=== PATIENT | male | born 1995 | race African-American/Black ===

== ENCOUNTER 2021-04-01 01:12 | Emergency (ER) | payer MEDICAID ==
[~2021-04-01] VITALS: Ht 193 cm; Wt 91.2 kg
[~2021-04-01 01:12] MED LIST: BUPR75TA4; TRAZ1TAB12; [UNRECOGNIZED DRUG - CODE]
[2021-04-01] MEDS ORDERED: LORazepam 2MG/ML-1ML VIAL IM ONE ×2 (09:45→10:45)
[2021-04-01 10:08] LABS: Basophils # (auto) 0.1 10 ^3/uL (0-0.2); Basophils % (auto) 0.8 % (0.0-2.0); Eosinophils # (auto) 0.3 10 ^3/uL (0-0.8); Eosinophils % (auto) 3.7 % (0.0-7.0); Hematocrit 42.3 % (41.0-53.0); Hemoglobin 13.6 g/dL (13.5-17.5); Lymphocytes # (auto) 2.2 10 ^3/uL (0.4-5.4); Lymphocytes % (auto) 27.6 % (10.0-50.0); Mean Corpuscular Hemoglobin 28.1 pg (28.0-32.0); Mean Corpuscular Hgb Conc. 32.2 g/dL (32.0-36.0); Mean Corpuscular Volume 87.3 fL (80.0-100.0); Monocytes # (auto) 0.6 10 ^3/uL (0-1.3); Neutrophils # (auto) 4.7 10 ^3/uL (1.6-8.6); Neutrophils % (auto) 59.9 % (37.0-80.0); Nucleated Red Blood Cells % 0.1 %; Red Blood Cells 4.85 10^6/uL (4.5-5.90); Red Cell Distribution Width 13.2 % (11.8-14.3); White Blood Cell 7.9 10^3/uL (4.4-10.8)
[2021-04-01] MEDS ORDERED: HALOPERIDOL LACTATE 5 MG/ML INJ VIAL ONE (10:39)
[2021-04-01] MEDS ORDERED: LORazepam 2MG/ML-1ML VIAL ONE (10:40)
[2021-04-01] MEDS ORDERED: HALOPERIDOL LACTATE 5 MG/ML INJ VIAL IM ONE (10:45)
[2021-04-01 11:44] LABS: Chloride 107 mmol/L (98-107); Sodium 140 mmol/L (136-145)
[2021-04-01 11:57] LABS: Alanine Aminotransferase 30 U/L (16-61); Albumin 3.3 g/dL (3.4-5.0); Alkaline Phosphatase 77 U/L (45-117); Anion Gap 4 (5-15); Aspartate Aminotransferase 24 U/L (15-37); BUN/Creatinine Ratio 13.9; Bilirubin, Total 0.9 mg/dL (0.2-1.0); Blood Alcohol < 3.0 mg/dL (0-5); Blood Urea Nitrogen 14 mg/dL (7-18); Calcium 8.8 mg/dL (8.5-10.1); Carbon Dioxide 29 mmol/L (21-32); GFR African American 116 mL/min; GFR Non-African American 96 mL/min; Glucose 102 mg/dL (74-106); Magnesium 2.5 mg/dL (1.6-2.6); Total Protein 6.7 g/dL (6.4-8.2)
[2021-04-01 20:30] VITALS: BP 105/53
== END 2021-04-02 08:31 | disposition left against medical advice (07) ==
LOC: ER 01:14
DX: R45.851 Suicidal ideations (principal); J45.909 Unspecified asthma, uncomplicated; Z59.00 Homelessness unspecified; Z79.899 Other long term (current) drug therapy
CPT/HCPCS: 36415; 80053; 80320; 83735; 85025; 96372; 99285; J1630; J2060

== ENCOUNTER 2021-04-03 04:15 | Emergency (ER) | payer MEDICAID ==
[~2021-04-03] VITALS: Ht 190.5 cm; Wt 90.7 kg
[2021-04-03 04:21] VITALS: BP 107/57
[2021-04-03 07:27] LABS: Urine WBC None Seen /hpf (0 - 3)
[2021-04-03 07:28] LABS: Basophils # (auto) 0.1 10 ^3/uL (0-0.2); Basophils % (auto) 0.8 % (0.0-2.0); Eosinophils # (auto) 0.3 10 ^3/uL (0-0.8); Eosinophils % (auto) 3.5 % (0.0-7.0); Hematocrit 42.9 % (41.0-53.0); Lymphocytes # (auto) 2.6 10 ^3/uL (0.4-5.4); Lymphocytes % (auto) 35.2 % (10.0-50.0); Mean Corpuscular Hemoglobin 28.6 pg (28.0-32.0); Mean Corpuscular Hgb Conc. 32.7 g/dL (32.0-36.0); Mean Corpuscular Volume 87.4 fL (80.0-100.0); Monocytes # (auto) 0.6 10 ^3/uL (0-1.3); Monocytes % (auto) 7.6 % (0.0-12.0); Neutrophils % (auto) 52.9 % (37.0-80.0); Nucleated Red Blood Cells % 0.1 %; Red Blood Cells 4.91 10^6/uL (4.5-5.90); Red Cell Distribution Width 13.2 % (11.8-14.3); White Blood Cell 7.5 10^3/uL (4.4-10.8)
[2021-04-03 07:45] LABS: Albumin 3.1 g/dL (3.4-5.0); Anion Gap 6 (5-15); Blood Urea Nitrogen 11 mg/dL (7-18); Calcium 8.7 mg/dL (8.5-10.1); Carbon Dioxide 28 mmol/L (21-32); Chloride 108 mmol/L (98-107); Glucose 89 mg/dL (74-106); Sodium 142 mmol/L (136-145)
[2021-04-03 07:47] LABS: Alanine Aminotransferase 29 U/L (16-61); Aspartate Aminotransferase 23 U/L (15-37); BUN/Creatinine Ratio 11.3; Blood Alcohol < 3.0 mg/dL (0-5); GFR African American 121 mL/min; GFR Non-African American 100 mL/min
[2021-04-03 07:49] LABS: Alkaline Phosphatase 70 U/L (45-117); Bilirubin, Total 0.3 mg/dL (0.2-1.0); Total Protein 6.7 g/dL (6.4-8.2)
[2021-04-03 07:53] LABS: Urine Bacteria NONE SEEN /hpf (None Seen); Urine Blood Negative /uL (Negative)
[2021-04-03 07:58] LABS: Acetaminophen < 2.0 ug/mL (10-30); Salicylate < 1.7 mg/dL (2.8-20.0)
[2021-04-03 08:16] LABS: Amphetamine Screen, Urine NEGATIVE (NEGATIVE); Barbiturate Scree,Urine NEGATIVE (NEGATIVE); Benzodiazephine Screen, Urine NEGATIVE (NEGATIVE)
[2021-04-03 08:31] LABS: Alcohol, Urine < 3.0 mg/dL (0-10); Cannabinoid Screen, Urine POSITIVE (NEGATIVE); Cocaine Screen, Urine NEGATIVE (NEGATIVE); Opiate Scree,Urine NEGATIVE (NEGATIVE); Phencyclidine Screen, Urine NEGATIVE (NEGATIVE)
== END 2021-04-03 08:30 | disposition left against medical advice (07) ==
LOC: EDBD 04:15 → ER 04:15
DX: R45.851 Suicidal ideations (principal); F32.9 Major depressive disorder, single episode, unspecified; J45.909 Unspecified asthma, uncomplicated
CPT/HCPCS: 36415; 80053; 80307; 80320; 80329; 81001; 85025

== ENCOUNTER 2021-04-08 23:58 | Emergency (ER) | payer MEDICAID ==
[~2021-04-08] VITALS: Ht 177.8 cm; Wt 81.6 kg
[2021-04-08 23:58] VITALS: BP 109/65
== END 2021-04-09 02:17 | disposition left against medical advice (07) ==
LOC: ER 23:58 → EDSEX 23:58 → EDBD 23:58 → ER 04-09 02:17
DX: M79.10 Myalgia, unspecified site (principal); R53.1 Weakness; Z53.21 Procedure and treatment not carried out due to patient leaving prior to being seen by health care provider

== ENCOUNTER 2022-03-25 17:53 | Emergency (ER) | payer MEDICAID ==
[~2022-03-25] VITALS: Ht 193 cm; Wt 111.1 kg
[2022-03-25 19:29] LABS: Basophils # (auto) 0 10 ^3/uL (0-0.2); Basophils % (auto) 0.7 % (0.0-2.0); Eosinophils # (auto) 0.2 10 ^3/uL (0-0.8); Eosinophils % (auto) 3.3 % (0.0-7.0); Hematocrit 42.5 % (41.0-53.0); Hemoglobin 13.7 g/dL (13.5-17.5); Lymphocytes % (auto) 29.5 % (10.0-50.0); Mean Corpuscular Hemoglobin 27.7 pg (28.0-32.0); Mean Corpuscular Hgb Conc. 32.3 g/dL (32.0-36.0); Mean Corpuscular Volume 85.8 fL (80.0-100.0); Monocytes # (auto) 0.5 10 ^3/uL (0-1.3); Monocytes % (auto) 7.6 % (0.0-12.0); Neutrophils # (auto) 4.1 10 ^3/uL (1.6-8.6); Neutrophils % (auto) 58.9 % (37.0-80.0); Red Blood Cells 4.96 10^6/uL (4.5-5.90); Red Cell Distribution Width 13.7 % (11.8-14.3); White Blood Cell 6.9 10^3/uL (4.4-10.8)
[2022-03-25 19:53] LABS: Albumin 3.6 g/dL (3.4-5.0); BUN/Creatinine Ratio 13.1; Calcium 8.9 mg/dL (8.5-10.1)
[2022-03-25 19:57] LABS: Bilirubin, Total 0.5 mg/dL (0.2-1.0); Total Protein 6.6 g/dL (6.4-8.2)
[2022-03-25 21:32] VITALS: BP 106/48
== END 2022-03-25 21:37 | disposition home or self-care (01) ==
LOC: ER 17:53
DX: R55 Syncope and collapse (principal); F12.10 Cannabis abuse, uncomplicated; J45.909 Unspecified asthma, uncomplicated
CPT/HCPCS: 36415; 80053; 82962; 85025; 93005

== ENCOUNTER 2022-05-14 16:12 | Emergency (ER) | payer MEDICAID ==
[~2022-05-14] VITALS: Ht 193 cm; Wt 109.0 kg
[2022-05-14] MEDS ORDERED: HYDROcodone-ACET 10/325MG TAB PO ONE (16:30)
[2022-05-14] MEDS ORDERED: KETOROLAC TROMETH 60MG/2ML VIAL IM ONE (16:30)
[2022-05-14] MEDS ORDERED: IBUP800T26 PO (18:31)
[2022-05-14] MEDS ORDERED: HYDR-4902 PO (18:31)
[2022-05-14 20:22] VITALS: BP 106/58
== END 2022-05-14 20:24 | disposition home or self-care (01) ==
LOC: ER 16:12
DX: R68.84 Jaw pain (principal); J45.909 Unspecified asthma, uncomplicated; F32.9 Major depressive disorder, single episode, unspecified
CPT/HCPCS: 70110; 96372; 99283; J1885

== ENCOUNTER 2023-07-05 18:47 | Emergency (ER) | payer MEDICAID, OTHER ==
[~2023-07-05] VITALS: Ht 297.2 cm; Wt 103.5 kg
[~2023-07-05 18:47] MED LIST changes: +HYDR-4902 PO; +IBUP-1455 PO
[2023-07-05 19:42] VITALS: BP 116/50; PULSE 77; RESP 20; O2SAT 97
== END 2023-07-05 21:10 | disposition left against medical advice (07) ==
LOC: ER 18:47
DX: S00.86XA Insect bite (nonvenomous) of other part of head, initial encounter (principal); Z53.21 Procedure and treatment not carried out due to patient leaving prior to being seen by health care provider; W57.XXXA Bitten or stung by nonvenomous insect and other nonvenomous arthropods, initial encounter; Y93.89 Activity, other specified; Y92.89 Other specified places as the place of occurrence of the external cause; Y99.8 Other external cause status

== ENCOUNTER 2023-12-24 14:34 | Emergency (ER) | payer OTHER ==
[~2023-12-24] VITALS: Ht 190.5 cm; Wt 123.0 kg
[2023-12-24] MEDS: FUROSEMIDE 20 MG TAB PO ONE (15:49)
[2023-12-24] MEDS: SODIUM CHLORIDE 0.9% 1,000 ML IV ONE (15:49)
[2023-12-24 16:31] LABS: Basophils # (auto) 0 10 ^3/uL (0-0.2); Basophils % (auto) 0.5 % (0.0-2.0); Eosinophils # (auto) 0.2 10 ^3/uL (0-0.8); Eosinophils % (auto) 2.8 % (0.0-7.0); Hematocrit 41.7 % (41.0-53.0); Hemoglobin 13.6 g/dL (13.5-17.5); Lymphocytes # (auto) 1.7 10 ^3/uL (0.4-5.4); Lymphocytes % (auto) 25.4 % (10.0-50.0); Mean Corpuscular Hemoglobin 28.6 pg (28.0-32.0); Mean Corpuscular Hgb Conc. 32.5 g/dL (32.0-36.0); Mean Corpuscular Volume 87.8 fL (80.0-100.0); Monocytes # (auto) 0.6 10 ^3/uL (0-1.3); Monocytes % (auto) 8.6 % (0.0-12.0); Neutrophils # (auto) 4.3 10 ^3/uL (1.6-8.6); Neutrophils % (auto) 62.7 % (37.0-80.0); Nucleated Red Blood Cells % 0.2 %; Platelet Count (auto) 192 10^3/uL (140-450); Red Blood Cells 4.75 10^6/uL (4.5-5.90); Red Cell Distribution Width 13.4 % (11.8-14.3); White Blood Cell 6.9 10^3/uL (4.4-10.8)
[2023-12-24 16:55] LABS: Alanine Aminotransferase 34 U/L (7-40); Albumin 3.6 g/dL (3.2-4.8); Alkaline Phosphatase 58 U/L (46-116); Anion Gap 4 (5-15); Aspartate Aminotransferase 18 U/L (13-40); BUN/Creatinine Ratio 12.5 (10.0-20.0); Bilirubin, Total 0.5 mg/dL (0.2-1.0); Blood Urea Nitrogen 11 mg/dL (9-23); Calcium 8.9 mg/dL (8.7-10.4); Carbon Dioxide 29 mmol/L (20-31); Chloride 112 mmol/L (98-107); Glucose 121 mg/dL (74-106); Lipase 43 U/L (12-53); Potassium 3.9 mmol/L (3.5-5.1); Sodium 145 mmol/L (136-145); Total Protein 5.7 g/dL (5.7-8.2)
[2023-12-24 17:20] LABS: Urine Bacteria MOD /hpf (None Seen); Urine Blood Negative /uL (Negative); Urine Clarity Turbid (Clear); Urine Color Light-Orange (Yellow); Urine Mucus FEW (None Seen); Urine Protein, UAD 1+ (Negative); Urine Specific Gravity 1.022 (1.001-1.035); Urine Sperm PRESENT /hpf (None Seen); Urine Urobilinogen 2 mg/dL (Negative); Urine WBC 7 /hpf (0 - 3); Urine pH 6.5 (5.0-9.0)
[2023-12-24 17:34] LABS: Amphetamine Screen, Urine Neg (NEGATIVE); Barbiturate Scree,Urine Neg (NEGATIVE); Benzodiazephine Screen, Urine Neg (NEGATIVE); Cannabinoid Screen, Urine Pos (NEGATIVE); Cocaine Screen, Urine Neg (NEGATIVE); Opiate Scree,Urine Neg (NEGATIVE); Phencyclidine Screen, Urine Neg (NEGATIVE)
[2023-12-24 18:21] VITALS: BP 119/73; PULSE 62; RESP 16; TEMP 98; O2SAT 100
== END 2023-12-24 18:28 | disposition home or self-care (01) ==
LOC: ER 14:34
DX: R60.0 Localized edema (principal); M79.89 Other specified soft tissue disorders; F32.A Depression, unspecified; R06.02 Shortness of breath; J45.909 Unspecified asthma, uncomplicated; Z79.899 Other long term (current) drug therapy
CPT/HCPCS: 36415; 80053; 80307; 81001; 83690; 83880; 84484; 85025; 96360; 99283; J7030